=== PATIENT | male | born 1960 | race Caucasian/White ===

== ENCOUNTER 2019-04-22 16:15 | Emergency (ER) | payer BC ==
[~2019-04-22] VITALS: Ht 180.3 cm; Wt 123.4 kg
[2019-04-22] MEDS ORDERED: FUROSEMIDE 40 M40 MG PO (16:36)
[2019-04-22] MEDS ORDERED: JANUVIA25 MG PO (16:37)
[2019-04-22] MEDS ORDERED: MAGNESIUM-VIT1 EAC1 PO (16:37)
[2019-04-22] MEDS ORDERED: LIPITOR 20 MG T20 M1 PO (16:37)
[2019-04-22] MEDS ORDERED: METFORMIN HCL500 M2 PO (16:37)
[2019-04-22] MEDS ORDERED: GLIPIZIDE ER5 MG PO (16:37)
[2019-04-22 16:40] LABS: ABSOLUTE EOSINOPHILS 0.5 thou/uL (0.0-0.7); ABSOLUTE MONOCYTES 0.4 thou/uL (0.0-1.2); ABSOLUTE NEUTROPHILS 5.9 thou/uL (1.6-8.1); BASOPHILS 0.4 %; EOSINOPHILS 5.5 %; HEMATOCRIT 36.6 % (42.0-52.0); HEMOGLOBIN 12.8 gm/dL (14.0-18.0); LYMPHOCYTES 22.7 %; MCHC 34.9 g/dL (28.0-37.0); MCV 88.7 fL (80.0-100.0); MONOCYTES 4.4 %; MPV 6.3 fl. (7.2-11.1); NUCLEATED RBCS 0 /100WBC; PLATELET COUNT* 276 thou/uL (150-400); RBC 4.13 mil/uL (4.50-6.00); RDW-CV 14.5 % (10.5-14.5); WBC 8.8 thou/uL (4.0-11.0)
[2019-04-22 17:19] LABS: CALCIUM 9.1 mg/dL (8.5-10.1); CREATININE 1.2 mg/dL (0.6-1.3); POTASSIUM 4.1 mmol/L (3.5-5.1)
[2019-04-22 17:20] LABS: APTT 27.9 Seconds (25.0-31.3); PROTIME 10.4 Seconds (9.20-11.50)
[2019-04-22 17:24] LABS: ALBUMIN 3.4 g/dL (3.4-5.0); TOTAL BILIRUBIN 0.7 mg/dL (<0.1-1.0); TOTAL PROTEIN 8.2 g/dL (6.4-8.2)
[2019-04-22 18:37] VITALS: BP 137/81
--- NOTE | 2019-04-23 10:15 | EKG ---
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[id number] Requested By: Jerardo Rivers Order Number: [id number] MD: Joes R Lauren Measurements Intervals [place] Rate: 76 P: 59 MI: 180 QRS: -34 QRSD: 114 T: 69 QT: 378 QTc: 426 Interpretive Statements Sinus rhythm Borderline IVCD with LAD Baseline wander in lead(s) I,III,aVR,aVL No previous ECG available for comparison Electronically Signed On 04-23-2019 10:15:08 [employer] by Jose R Lauren [email or web address] <ELECTRONICALLY SIGNED> By: Jose R Lauren MD, MERGED WITH [facility] 04/23/19 1015 [id number] Jose R Lauren MD, FAC /EPI
== END 2019-04-22 18:37 | disposition home or self-care (01) ==
LOC: M.ERS 16:15
PROVIDERS: Nurse Practitioner Psychiatric/Mental Health
DX: R60.0 Localized edema (principal); Z86.718 Personal history of other venous thrombosis and embolism; Z79.84 Long term (current) use of oral hypoglycemic drugs